=== PATIENT | female | born 1995 ===

== ENCOUNTER → 2022-06-01 17:48 | Observation (INO) ==
[2022-06-01 13:13] LABS: Basophils % 0.2 %; Eosinophils % 0.5 %; Hematocrit 30.5 % (35.3-44.9); Immature Granulocytes % 0.3 % (0-4); Lymphocytes # 0.4 K/mcL (0.6-4.6); Lymphocytes % 6.4 %; Mean Corpuscular HGB Conc 32.8 g/dL (31.6-35.5); Mean Corpuscular Hemoglobin 25.7 pg (28.0-33.3); Mean Corpuscular Volume 78.4 fL (83.0-100.0); Mean Platelet Volume 11.6 fL (9.4-12.4); Monocytes # 0.3 K/mcL (0.0-1.3); Monocytes % 5.3 %; Neutrophils # 5.5 K/mcL (1.6-8.9); Platelet Count 144 K/mcL (140-400); Red Blood Count 3.89 M/mcL (3.82-4.97); Segmented Neutrophils % 87.3 %; White Blood Count 6.3 K/mcL (4.3-11.1)
[2022-06-01 13:31] LABS: Albumin 3.5 g/dL (3.5-5.7); Albumin/Globulin Ratio 1.3 (1.1-2.2); Bilirubin,Direct 0.1 mg/dL (0.0-0.2); Bilirubin,Indirect 0.3 mg/dL (0.0-1.0); Bilirubin,Total 0.4 mg/dL (0.3-1.0); Globulin 2.7 g/dL (2.4-3.5); Total Protein 6.2 g/dL (6.4-8.9)
[2022-06-01 13:32] LABS: Bacteria,Urine Few per hpf (None-Few); Bilirubin,Urine Negative (Negative); Blood,Urine Negative (Negative); Clarity,Urine Clear (Clear); Color,Urine Colorless (Yellow); Glucose,Urine (UA) Normal (Normal); Ketones,Urine Negative (Negative); Leukocyte Esterase,Urine Moderate (Negative); Nitrite,Urine Negative (Negative); Protein,Urine Negative (Neg-Trace); RBC,Urine 0-3 per hpf (0-3); Specific Gravity,Urine 1.005 (1.010-1.025); Squamous Epithelial Cell,Urine Few per hpf (None-Few); Urobilinogen,Urine Normal (Normal); WBC,Urine 0-3 per hpf (0-3)
[~2022-06-01 17:48] MED LIST: Morphine Sulfate 2 MG/ML SYRINGE IVP PRN; Ondansetron 4 MG/2 ML VIAL IVP PRN; Ringers Solution, Lactated 1,000 ML IVC SCH
== END | disposition home or self-care (01) ==
LOC: 1NENULAB
PROVIDERS: ADMIT Advanced Practice Midwife; ATTEND Advanced Practice Midwife

== ENCOUNTER 2022-08-15 14:09 | Inpatient (IN) ==
[~2022-08-15 14:09] MED LIST changes: +*HR* Labetalol 20 MG/4 ML SYRINGE IVP PRN; +*HR* Nalbuphine 10 MG/ML AMPUL IV PRN; +Azithromycin 500 MG in 0.9 % Sodium Chloride 250 ML IVPB PRN; +Famotidine 20 MG/2 ML VIAL IVP PRN; +Metoclopramide 10 MG/2 ML VIAL IVP PRN; -Morphine Sulfate 2 MG/ML SYRINGE IVP PRN; +Naloxone 0.4 MG/ML INJ IVP PRN; -Ringers Solution, Lactated 1,000 ML IVC SCH
[2022-08-15] MEDS ORDERED: Calcium Gluconate 1,000 MG/10 ML VIAL IVP PRN ×2 (14:12→20:14)
[2022-08-15] MEDS ORDERED: Magnesium Sulf 20 gm/SW 500mL 4 GM/100 ML BAG IV ONE (14:13)
[2022-08-15] MEDS ORDERED: Ringers Solution, Lactated 1,000 ML IVC SCH (14:15)
[2022-08-15] MEDS ORDERED: Magnesium Sulf 20 gm/SW 500mL 20 GM/500 ML IV.SOLN IVC SCH (14:15)
[2022-08-15] MEDS ORDERED: Oxytocin 30 UNIT/503 ML BAG IVC SCH ×2 (14:30→20:14)
[2022-08-15 14:39] LABS: Basophils % 0.2 %; Eosinophils % 0.2 %; Hematocrit 35.5 % (35.3-44.9); Hemoglobin 11.2 g/dL (11.5-15.4); Immature Granulocytes % 0.5 % (0-4); Lymphocytes # 1.4 K/mcL (0.6-4.6); Lymphocytes % 11.5 %; Mean Corpuscular HGB Conc 31.5 g/dL (31.6-35.5); Mean Corpuscular Hemoglobin 24.9 pg (28.0-33.3); Mean Corpuscular Volume 79.1 fL (83.0-100.0); Mean Platelet Volume 12.5 fL (9.4-12.4); Monocytes # 0.6 K/mcL (0.0-1.3); Monocytes % 5.2 %; Neutrophils # 9.7 K/mcL (1.6-8.9); Platelet Count 117 K/mcL (140-400); Red Blood Count 4.49 M/mcL (3.82-4.97); Red Cell Distribution Width 15.8 % (11.5-14.5); Segmented Neutrophils % 82.4 %; White Blood Count 11.8 K/mcL (4.3-11.1)
[2022-08-15 14:57] LABS: Alanine Aminotransferase 9 Units/L (7-52); Aspartate Amino Transferase 16 Units/L (13-39); BUN/Creatinine Ratio 22 (6-26); Blood Urea Nitrogen 12 mg/dL (6-20); Lactate Dehydrogenase 187 Units/L (140-271); Uric Acid 8.7 mg/dL (2.3-7.6)
[2022-08-15] MEDS ORDERED: NIFEdipine XL (24 HR) 30 MG TAB.ER.24 PO SCH (15:00)
[2022-08-15] MEDS ORDERED: *HR* Labetalol 20 MG/4 ML SYRINGE IVP ONE ×2 (15:22→15:24)
[2022-08-15 15:25] LABS: Bacteria,Urine Few per hpf (None-Few); Bilirubin,Urine Negative (Negative); Blood,Urine Negative (Negative); Clarity,Urine Clear (Clear); Color,Urine Yellow (Yellow); Glucose,Urine (UA) Normal (Normal); Ketones,Urine 20 mg/dL (Negative); Leukocyte Esterase,Urine Negative (Negative); Mucus,Urine Few per lpf (None-Few); Nitrite,Urine Negative (Negative); Protein,Urine 100 mg/dL (Neg-Trace); RBC,Urine 0-3 per hpf (0-3); Squamous Epithelial Cell,Urine Few per hpf (None-Few); Urobilinogen,Urine Normal (Normal); WBC,Urine 0-3 per hpf (0-3)
[2022-08-15] MEDS ORDERED: ceFAZolin 2,000 MG in Water for inj. (sterile) 20 ML IVP ONE (15:32)
[2022-08-15 15:38] LABS: Protein/Creatinine Ratio,Urine 1.02 mg/mg (0.00-0.20)
[2022-08-15] MEDS ORDERED: *HR* OxyCODONE Immed Rel 5 MG TABLET PO PRN ×2 (15:49→20:14)
[2022-08-15] MEDS ORDERED: *HR* FentaNYL (PF) 100 MCG/2 ML VIAL IVP PRN (15:49)
[2022-08-15] MEDS ORDERED: *HR* Labetalol 20 MG/4 ML SYRINGE IVP PRN (15:49)
[2022-08-15] MEDS ORDERED: Promethazine 6.25 MG in Water for inj. (sterile) 20 ML IVPB PRN (15:49)
[2022-08-15] MEDS ORDERED: *HR* Nalbuphine 10 MG/ML AMPUL IV PRN (15:51)
[2022-08-15] MEDS ORDERED: *HR* Morphine Sulfate/PF 10 MG/10 ML AMPUL ONE (15:55)
[2022-08-15] MEDS ORDERED: Ketorolac 30 MG/ML VIAL ONE (15:58)
[2022-08-15] MEDS ORDERED: Acetaminophen IV 1,000 MG/100 ML BAG IVPB ONE (15:59)
[2022-08-15 16:17] LABS: Amphetamine Screen,Urine Negative ng/mL (Cutoff=1000); Barbiturate Screen,Urine Negative ng/mL (Cutoff=200); Benzodiazepines Screen,Urine Negative ng/mL (Cutoff=200); Cannabinoid Screen,Urine Negative ng/mL (Cutoff = 50); Cocaine Screen,Urine Negative ng/mL (Cutoff= 300); Opiate Screen,Urine Positive ng/mL (Cutoff=300); Phencyclidine Screen,Urine Negative ng/mL (Cutoff=25)
[2022-08-15] MEDS ORDERED: EPHEDrine sulfate 50 MG/10 ML VIAL IVP ONE (16:24)
[2022-08-15] MEDS ORDERED: Ondansetron 4 MG/2 ML VIAL ONE (16:37)
[2022-08-15] MEDS ORDERED: OXYTOCIN/RINGERS LACTATE 10 UNIT/166.6 ML BAG IVC ONE (20:14)
[2022-08-15] MEDS ORDERED: Metoclopramide 10 MG/2 ML VIAL IVP PRN (20:14)
[2022-08-15] MEDS ORDERED: Measles/Mumps/Rubella Vacc 0.5 ML VIAL SQ ONE (20:14)
[2022-08-15] MEDS ORDERED: Ondansetron 4 MG/2 ML VIAL IVP PRN (20:14)
[2022-08-15] MEDS ORDERED: Simethicone 80 MG TAB.CHEW PO SCH (21:00)
[2022-08-15] MEDS ORDERED: Ringers Solution, Lactated 1,000 ML ONE (21:32)
[2022-08-15] MEDS ORDERED: Ketorolac 30 MG/ML VIAL IVP SCH (23:00)
[2022-08-16] MEDS: Magnesium Sulf 20 gm/SW 500mL 20 GM/500 ML IV.SOLN IVC SCH ×2 (03:17→12:21)
[2022-08-16 04:39] LABS: Basophils % 0.1 %; Immature Granulocytes % 0.8 % (0-4); Mean Corpuscular Volume 79.9 fL (83.0-100.0); Red Cell Distribution Width 15.9 % (11.5-14.5)
[2022-08-16 04:42] LABS: Hematocrit 23.4 % (35.3-44.9); Hemoglobin 7.4 g/dL (11.5-15.4); Immature Platelets 12.7 % (1.1-6.1); Lymphocytes # 0.9 K/mcL (0.6-4.6); Lymphocytes % 6.3 %; Mean Corpuscular HGB Conc 31.6 g/dL (31.6-35.5); Mean Corpuscular Hemoglobin 25.3 pg (28.0-33.3); Monocytes # 0.8 K/mcL (0.0-1.3); Monocytes % 5.3 %; Neutrophils # 12.6 K/mcL (1.6-8.9); Nucleated Red Blood Cells 0.2 /100 WBC (0); Red Blood Count 2.93 M/mcL (3.82-4.97); Segmented Neutrophils % 87.5 %; White Blood Count 14.4 K/mcL (4.3-11.1)
[2022-08-16 04:53] LABS: Platelet Count 88 K/mcL (140-400)
[2022-08-16 04:54] LABS: Platelet Estimate Decreased (Normal)
[2022-08-16] MEDS ORDERED: Prenatal Vit/FA 1 EACH TABLET PO SCH (09:00)
[2022-08-16] MEDS ORDERED: NIFEdipine XL (24 HR) 30 MG TAB.ER.24 PO SCH (09:00)
[2022-08-16] MEDS: Acetaminophen 325 MG TABLET PO SCH (09:10)
[2022-08-16] MEDS: Ibuprofen 600 MG TABLET PO SCH ×2 (12:21→18:42)
[2022-08-16 15:20] LABS: Basophils % 0.2 %; Eosinophils % 0.4 %; Hematocrit 20.3 % (35.3-44.9); Hemoglobin 6.3 g/dL (11.5-15.4); Immature Granulocytes % 0.5 % (0-4); Lymphocytes # 1.3 K/mcL (0.6-4.6); Lymphocytes % 13.4 %; Mean Corpuscular Hemoglobin 25.2 pg (28.0-33.3); Mean Corpuscular Volume 81.2 fL (83.0-100.0); Mean Platelet Volume 12.1 fL (9.4-12.4); Monocytes # 0.5 K/mcL (0.0-1.3); Monocytes % 5.2 %; Neutrophils # 7.6 K/mcL (1.6-8.9); Nucleated Red Blood Cells 0.2 /100 WBC (0); Platelet Count 105 K/mcL (140-400); Red Cell Distribution Width 15.9 % (11.5-14.5); Segmented Neutrophils % 80.3 %; White Blood Count 9.5 K/mcL (4.3-11.1)
[2022-08-16 15:38] LABS: Alanine Aminotransferase 11 Units/L (7-52); Aspartate Amino Transferase 17 Units/L (13-39); BUN/Creatinine Ratio 17 (6-26); Blood Urea Nitrogen 10 mg/dL (6-20); Lactate Dehydrogenase 163 Units/L (140-271); Uric Acid 8.5 mg/dL (2.3-7.6)
[2022-08-16] MEDS ORDERED: 0.9 % Sodium Chloride 1,000 ML ONE (17:06)
[2022-08-16] MEDS ORDERED: Acetaminophen 325 MG TABLET PO ONE (18:29)
[2022-08-17] MEDS: Acetaminophen 325 MG TABLET PO SCH ×2 (02:09→09:46)
[2022-08-17] MEDS: Ibuprofen 600 MG TABLET PO SCH ×2 (02:09→09:46)
[2022-08-17 04:33] VITALS: PULSE 80
[2022-08-17 05:02] LABS: Basophils % 0.1 %; Eosinophils % 0.4 %; Hematocrit 21.5 % (35.3-44.9); Hemoglobin 6.9 g/dL (11.5-15.4); Immature Granulocytes % 0.9 % (0-4); Lymphocytes # 1.1 K/mcL (0.6-4.6); Lymphocytes % 11.5 %; Mean Corpuscular HGB Conc 32.1 g/dL (31.6-35.5); Mean Corpuscular Hemoglobin 25.7 pg (28.0-33.3); Mean Corpuscular Volume 80.2 fL (83.0-100.0); Mean Platelet Volume 12.5 fL (9.4-12.4); Monocytes # 0.5 K/mcL (0.0-1.3); Monocytes % 5.5 %; Neutrophils # 8.1 K/mcL (1.6-8.9); Platelet Count 110 K/mcL (140-400); Red Blood Count 2.68 M/mcL (3.82-4.97); Red Cell Distribution Width 16.6 % (11.5-14.5); Segmented Neutrophils % 81.6 %; White Blood Count 9.9 K/mcL (4.3-11.1)
[2022-08-17 05:22] LABS: Alanine Aminotransferase 13 Units/L (7-52); Aspartate Amino Transferase 18 Units/L (13-39); BUN/Creatinine Ratio 15 (6-26); Blood Urea Nitrogen 8 mg/dL (6-20); Lactate Dehydrogenase 184 Units/L (140-271); Uric Acid 7.5 mg/dL (2.3-7.6)
[2022-08-17 07:30] VITALS: BP 111/69; TEMP 98.6; O2SAT 99
== END 2022-08-17 12:30 | disposition home or self-care (01) | DRG 787 ==
LOC: 1NENULAB → 1NENUOBS 20:14
PROVIDERS: ADMIT Advanced Practice Midwife; ATTEND Advanced Practice Midwife